=== PATIENT | male | born 1950 | race American Indian/Alaskan Native ===

== ENCOUNTER 2019-05-30 09:40 | Day surgery (SDC) | payer MEDICARE, OTHER ==
[2019-05-30] MEDS ORDERED: LACTATED RINGERS 1,000 ML ONE (10:17)
[2019-05-30] MEDS ORDERED: ZOFRAN IV PRN (11:13)
[2019-05-30] MEDS ORDERED: SUBLIMAZE IV PRN (11:13)
--- NOTE | 2019-05-30 11:14 | Anesthesia Day of Surgery ---
Anesthesia Day of Surgery - Day of Surgery Patient Examined: Yes Patient H&P Reviewed: Yes Patient is NPO: Yes
[2019-05-30] MEDS ORDERED: ceFAZolin 2 GM in NACL 0.9% 100 ML IV ONE (11:30)
--- NOTE | 2019-05-30 11:32 | Anesthesia Consultation ---
Anesthesia Consult and Med Hx Date of service: 05/30/19 - Airway Anesthetic Teeth Evaluation: Bridges ROM Head & Neck: Adequate Mental/Hyoid Distance: Adequate Mallampati Class: Class II Intubation Access Assessment: Good - Pre-Operative Health Status ASA Pre-Surgery Classification: ASA2 Proposed Anesthetic Plan: General - Pulmonary Hx Smoking: No Hx Sleep Apnea: No (MAEVE PRE SCREEN HIGH RISK.) - Cardiovascular System Hx Hypertension: Yes (X 15 YRS) Hx Coronary Artery Disease: (high cholesterol) Hx Heart Murmur: Yes - Endocrine Hx Renal Disease: Yes (Cr-1.30) - Other Systems Hx Alcohol Use: Yes (1 X WEEK WINE) Hx Cancer: No - Additional Comments Anesthesia Medical History Comments: +Med Clearance
[2019-05-30] MEDS ORDERED: LACTATED RINGERS 1,000 ML IV SCH (12:00)
[2019-05-30] MEDS ORDERED: SUBLIMAZE ONE (12:04)
[2019-05-30] MEDS ORDERED: ZEMURON IV ONE (12:04)
[2019-05-30] MEDS ORDERED: XYLOCAINE MPF 2% ONE (12:04)
[2019-05-30] MEDS ORDERED: DIPRIVAN 10 MG/ML IV ONE (12:04)
[2019-05-30] MEDS ORDERED: VERSED ONE (12:20)
[2019-05-30] MEDS ORDERED: ZOFRAN ONE (12:30)
[2019-05-30] MEDS ORDERED: BLOXIVERZ ONE (12:30)
[2019-05-30] MEDS ORDERED: ROBINUL ONE (12:30)
[2019-05-30] MEDS ORDERED: NACL 0.9% IR ONE (12:44)
[2019-05-30] MEDS ORDERED: MARCAINE-EPI 0.5%-1:200,000 INFILTRATI ONE (12:44)
--- NOTE | 2019-05-30 13:17 | Discharge Summary ---
Short Stay Discharge Plan Activity: other (observe x 4 hrs then february d/c if stable and able to void. ice pack L groin x 6 hrs. scrotal support x 3 days. keep dressings dry x 5 days. no lifting over 5 lbs x 3 wks) Diet: clear liquids (advance to solid high fiber as meg) Wound: keep clean and dry Additional Instructions: aleve I po q 6-8 hrs prn for breakthrough pain. surfak I po q am x 3 days Follow up with: TRINY JHA MD [Staff Physician] - 7 Days
[2019-05-30 14:18] VITALS: BP 126/82
[2019-05-30] MEDS ORDERED: NORCO 5/325 PO PRN (14:51)
--- NOTE | 2019-05-30 15:39 | Operative Report ---
PREOPERATIVE DIAGNOSIS: Left inguinal hernia. POSTOPERATIVE DIAGNOSIS: Large direct inguinal hernia, also lipoma of cord. PROCEDURE: Left inguinal hernia repair with mesh and removal of lipoma of cord. SURGEON: Blayne Zaman MD ANESTHESIA: General. ESTIMATED BLOOD LOSS: Minimal. DRAINS: None. COMPLICATIONS: None. DESCRIPTION OF PROCEDURE: The patient was taken to the operating room, prepped and draped in usual sterile fashion. Incision was made using his landmarks anterior superior iliac spine and the pubic tubercle. Incision was carried down to the external oblique fascia. External oblique fascia was transected down to the external inguinal ring. Cord was then isolated with a Terra drain at the level of the pubic tubercle. Large lipoma of the cord was noted. This was removed and sent as specimen. Inspection of the cord itself revealed no indirect hernia sac. A large direct hernia was noted in the floor of the canal. A keyhole Marlex mesh was then used to reconstruct the inguinal canal floor. The mesh was tacked inferiorly to the area of the pubic tubercle. Medially, the mesh was secured to the transversalis fascia and laterally to the iliopubic tract with Nurolon sutures. The entire area was irrigated copiously and dried. Checked for hemostasis and noted to be dry. Cord structures were inspected and noted to be intact. The cord was then on laid over the mesh. The external oblique fascia was closed over the cord with running 3-0 Vicryl suture. Subcutaneous tissues irrigated and skin closed with samuel. A 0.5% Marcaine with epinephrine was infiltrated over the fascia, subcutaneous, and skin for postoperative pain relief. Ilioinguinal nerve block was also performed. The patient tolerated the procedure well and left the OR in stable condition. JOB# [id number] FP/ESTEFANIA
--- NOTE | 2019-05-30 16:55 | Post Anesthesia Evaluation ---
- Post Anesthesia Evaluation Patient Participated: Yes Airway Patent: Yes Stable Respiratory Function: Yes Nausea/Vomiting: No Temp > 96.8F: Yes Pain Manageable: Yes Adequeate Hydration: Yes Anesthesia Complications: No Block Receding Appropriately: Not Applicable Patient on Ventilator: No
== END 2019-05-30 18:00 | disposition home or self-care (01) ==
LOC: OR 09:40
PROVIDERS: ATTEND Surgery
DX: K40.90 Unilateral inguinal hernia, without obstruction or gangrene, not specified as recurrent (principal); D17.6 Benign lipomatous neoplasm of spermatic cord; I10 Essential (primary) hypertension; I25.10 Atherosclerotic heart disease of native coronary artery without angina pectoris; E78.00 Pure hypercholesterolemia, unspecified; Z72.89 Other problems related to lifestyle; Z98.890 Other specified postprocedural states; Z98.49 Cataract extraction status, unspecified eye; Z79.899 Other long term (current) drug therapy; Z91.040 Latex allergy status
CPT/HCPCS: 49505; 88302; C1781; J2250; J2405; J2704; J2710; J3010; J7120; 88304